=== PATIENT | male | born 1970 | race Caucasian/White ===

== ENCOUNTER 2022-11-07 14:24 | Outpatient (REF) | payer BC, SELFPAY ==
--- NOTE | ~2022-11-07 | XR_ITS ---
EXAMINATION: XR LUMBOSACRAL SPINE WITH OBLIQUES CLINICAL INFORMATION: Dorsalis. COMPARISON: None available. TECHNIQUE: 3 views of the lumbar spine including flexion and extension views. FINDINGS: Evaluation is limited secondary to patient body habitus. Posterior fusion hardware with bilateral transpedicular screws and interdisc spacer at L4-L5. No evidence of hardware failure. No instability on flexion and extension views. No acute compression deformity or subluxation. Moderate spondylosis in the lower lumbar spine leading to neural foraminal encroachment and central canal stenosis. SI joints are symmetric. No significant paraspinal soft tissue abnormality. XR/XR lumbar spine 4V min IMPRESSION: 1. Posterior fusion hardware at L4-L5 without evidence of hardware failure. 2. No acute compression deformity or malalignment. No instability on flexion and extension views. 3. Moderate lumbar spondylosis. It is important to note that evaluation is limited due to patient body habitus, if indicated correlation with CT or MR could be obtained.
== END 2022-11-07 14:25 | disposition home or self-care (01) ==
LOC: HO.HOSX 14:24
PROVIDERS: PCP Family Medicine; Visit Provider Physician Assistant
DX: M54.9 Dorsalgia, unspecified (principal)
CPT/HCPCS: 72110

== ENCOUNTER 2022-12-05 15:10 | Outpatient (REF) | payer BC, SELFPAY ==
--- NOTE | ~2022-12-05 | XR_ITS ---
EXAMINATION: XR LUMBOSACRAL SPINE WITH OBLIQUES CLINICAL INFORMATION: Lumbago with sciatica COMPARISON: None available. TECHNIQUE: AP, both oblique, and lateral views of the lumbar spine. Lateral view of the lumbosacral junction. FINDINGS: There is L4-L5 disc prosthesis stabilized with bilateral L4-L5 pedicle screws and interconnecting yusuf for posterior stability. Rest the disc heights, vertebral heights and alignment is normal. No visible acute fracture or dislocation seen. No lytic process. The SI joints are symmetrical. XR/XR lumbar spine 4V min IMPRESSION: L4-L5 disc prosthesis stabilized with bilateral pedicle screws and interconnecting yusuf. No visible acute fracture, dislocation or lytic process seen.
== END 2022-12-05 15:11 | disposition home or self-care (01) ==
LOC: HO.HOSX 15:10
PROVIDERS: Visit Provider Physician Assistant
DX: M54.40 Lumbago with sciatica, unspecified side (principal); M54.9 Dorsalgia, unspecified
CPT/HCPCS: 72110

== ENCOUNTER 2023-03-13 15:06 | Outpatient (AMB) | payer BC, SELFPAY ==
--- NOTE | 2023-03-13 16:28 | A.SPINEOV_ITS ---
Intake Intake Visit Reasons: 3 month f/u Intake Note: Mr. Black is here today for his 3mo f/u. 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 He previously reported the use still having some low back/buttocks pain with standing and ambulation. He now reports that he has no pain is back, no pain in his buttocks, no pain in his legs. He is very happy with his surgery, and with his healing progress and has returned to work at near full duty. He was advised to continue to restrict what he lifts off the grounding carries. At this time there is no continued need for follow-up. He was advised to call our office if there is anything else that he needs, or if he develops any new symptoms. Total amount of time spent in this visit was 20 minutes in discussion of symptoms, and subsequent plan of care Marty Almeida MD,PhD [facility] Coding Level of Care Code Est Pt Level 3 (36381) Diagnoses Back pain of lumbar region with sciatica M54.40
== END 2023-03-13 16:34 | disposition home or self-care (01) ==
PROVIDERS: PCP Family Medicine; Visit Provider Physician Assistant
DX: M54.40 Lumbago with sciatica, unspecified side (principal)
CPT/HCPCS: 99213

== ENCOUNTER → 2023-03-13 15:06 | Outpatient (BNVA) | payer BC, SELFPAY | PROVIDERS: Visit Provider Physician Assistant ==